=== PATIENT | female | born 1940 | race African-American/Black ===

== ENCOUNTER 2017-01-02 15:00 | Emergency (ER) | payer OTHER ==
[~2017-01-02] VITALS: Ht 167.6 cm; Wt 84.0 kg
[~2017-01-02 15:00] MED LIST: ARIP2TAB3 PO; ATOR20TA PO; BISA-81 PO; CODE118S2 PO; LISI-186 PO; MOME13HF2 IH; OXYC-159 PO; OXYC15TA88 PO; POLY17PO3 PO
[2017-01-02] MEDS ORDERED: KETOROLAC 30MG/ML VIAL IV STA (16:20)
[2017-01-02] MEDS ORDERED: SODIUM CHLORIDE 0.9% 1,000 ML IV ONE (16:20)
[2017-01-02 16:41] LABS: BASOPHILS % 0.2 % (0.0-2.0); EOSINOPHILS % 0.8 % (0.0-5.0); HEMATOCRIT. 30.7 % (36.0-48.0); HEMOGLOBIN. 10.1 g/dL (12.0-16.0); LYMPHOCYTES % 10.3 % (20.0-50.0); MEAN CORPUSCULAR VOLUME 85.1 fL (81.0-99.0); MEAN PLATELET VOLUME 6.5 fl (7.4-10.4); NEUTROPHILS % 81.7 % (40.0-76.0); PLATELET 231 x1000/uL (130-400); RED CELL DISTRIBUTION WIDTH 13.6 % (11.6-14.6)
[2017-01-02 16:44] LABS: INR 1.1; PROTHROMBIN TIME 11.2 sec (9.4-11.6)
[2017-01-02 16:47] LABS: CARBON DIOXIDE 30 mEq/L (21-32); CHLORIDE 103 mEq/L (98-107)
[2017-01-02 19:03] LABS: CLARITY URINE CLEAR (CLEAR); COLOR URINE YELLOW (YELLOW); GLUCOSE URINE NEGATIVE (NEGATIVE); KETONES URINE NEGATIVE (NEGATIVE); LEUKOCYTE ESTERASE URINE NEGATIVE (NEGATIVE); NITRITE URINE NEGATIVE (NEGATIVE); OCCULT BLOOD URINE NEGATIVE (NEGATIVE); PROTEIN URINE NEGATIVE (NEGATIVE); SPECIFIC GRAVITY URINE 1.013 (1.005-1.030); UROBILINOGEN URINE 0.2 E.U./dL (0.2-1.0)
[2017-01-02 20:04] VITALS: BP 120/58
== END 2017-01-02 20:10 | disposition home or self-care (01) ==
LOC: ER 17:59
DX: M54.5 Low back pain (principal); G89.29 Other chronic pain; R33.9 Retention of urine, unspecified; I10 Essential (primary) hypertension; Z98.51 Tubal ligation status
CPT/HCPCS: 36415; 51702; 76770; 80053; 81003; 85025; 85610; 96361; 96374; 99285; J1885; J7030; Z7610